=== PATIENT | female | born 1985 | race Asian ===

== ENCOUNTER 2021-12-24 18:22 | Emergency (ER) | payer BC ==
[~2021-12-24] VITALS: Ht 152.4 cm; Wt 42.6 kg
[2021-12-24 18:55] VITALS: BP 96/66
--- NOTE | 2021-12-24 18:55 | NUR ---
TO ER BED 11, C/O SYCOPAL EPISODE AT HOME 1 [employer], AAOX3, BREATHING EVEN AND NON LABORED AWAITING MD STRANGE
--- NOTE | 2021-12-24 19:03 | NUR ---
URINE COLLECTED AND SENT TO THE LAB
--- NOTE | 2021-12-24 19:38 | NUR ---
US AT BEDSIDE
--- NOTE | 2021-12-24 19:47 | NUR ---
ABRIL DEJESUS AT BEDSIDE FOR EKG
[2021-12-24 19:52] LABS: BILIRUBIN,URINE NEGATIVE (NEGATIVE); COLOR,URINE YELLOW (YELLOW); LEUKOCYTE ESTERASE ,URINE NEGATIVE (NEGATIVE); NITRITE, URINE NEGATIVE (NEGATIVE); PROTEIN,URINE NEGATIVE (NEGATIVE); UGLUCOSE NEGATIVE (NEGATIVE); UROBILINOGEN,URINE 0.2 EU/dL (0.2)
[2021-12-24 20:03] LABS: BACTERIA,URINE None seen /HPF (None Seen); RBC,URINE 0-2 /HPF (0-2); WBC,URINE 0-2 /HPF (0-3)
[2021-12-24 20:04] LABS: YEAST,URINE Few /HPF (None Seen)
[2021-12-24 20:14] LABS: HEMOGLOBIN 12.6 g/dL (11.5-14.8); WHITE BLOOD COUNT (AUTO) 8.2 K/uL (4.3-11.0)
[2021-12-24 20:23] LABS: BASOPHILS % (AUTO) 0.2 % (0.0-2.0); EOSINOPHILS % (AUTO) 0.1 % (0.0-6.0); HEMATOCRIT 37 % (33-45); LYMPHOCYTES # (AUTO) 0.6 K/uL (0.8-4.8); LYMPHOCYTES % (AUTO) 6.7 % (20.0-44.0); MEAN CORPUSCULAR HGB CONC 34 g/dl (31.0-36.0); MEAN CORPUSCULAR VOLUME 90 fL (82-100); MONOCYTES # (AUTO) 0.4 K/uL (0.1-1.30); MONOCYTES % (AUTO) 5.1 % (2.0-12.0); NEUTROPHILS # (AUTO) 7.2 K/uL (1.8-8.9); NEUTROPHILS % (AUTO) 87.9 % (43.0-81.0); PLATELET COUNT (AUTO) 260 K/uL (150-450); RED BLOOD CELL COUNT(AUTO) 4.13 MIL/uL (4.0-5.2)
[2021-12-24 20:47] LABS: CREATININE 0.8 mg/dL (0.6-1.3); POTASSIUM 3.7 mmol/L (3.5-5.1)
[2021-12-24 20:54] LABS: ALBUMIN 3.8 g/dL (3.4-5.0); BILIRUBIN,DIRECT 0.1 mg/dL (0.0-0.2); BILIRUBIN,TOTAL 0.6 mg/dL (0.2-1.0); TOTAL PROTEIN, SERUM 7.1 g/dL (6.4-8.2)
--- NOTE | 2021-12-24 21:05 | NUR ---
Patient discharged to home in stable condition. Written and verbal after care instructions given. Patient verbalizes understanding of instruction.
== END 2021-12-24 21:06 | disposition home or self-care (01) ==
LOC: ER 18:29
DX: N83.291 Other ovarian cyst, right side (principal); Z88.0 Allergy status to penicillin; Z88.8 Allergy status to other drugs, medicaments and biological substances
CPT/HCPCS: 36415; 76856-TC; 80048-TC; 80076-TC; 81001; 83690-TC; 84703-TC; 85025-TC